=== PATIENT | male | born 1985 | race Caucasian/White ===

== ENCOUNTER 2020-11-16 14:06 | Emergency (ER) | payer SELFPAY ==
[~2020-11-16] VITALS: Ht 177.8 cm; Wt 75.0 kg
[~2020-11-16 14:06] MED LIST: NOCURR
[2020-11-16] MEDS ORDERED: SODIUM CHLORIDE 0.9% 1,000 ML IV ONE (15:15)
[2020-11-16] MEDS ORDERED: PB/HYOSCY/ATR/SCOP/LIDO/MAALOX 55 ML BOTTLE PO ONE (15:15)
[2020-11-16 16:01] LABS: BASOPHILS % (AUTO) 0.9 % (0.0-2.0); HEMATOCRIT 47.1 % (41-53); HEMOGLOBIN 15.4 g/dL (13.5-17.5); LYMPHOCYTES # (AUTO) 1.8 K/uL (1.0-4.8); LYMPHOCYTES % (AUTO) 25.1 % (22.0-44.0); MEAN CORPUSCULAR HEMOGLOBIN 28.6 pg (26.0-34.0); MEAN CORPUSCULAR HGB CONC 32.6 G/dL (31.0-37.0); MEAN CORPUSCULAR VOLUME 88 fL (80-100); MONOCYTES # (AUTO) 0.4 K/uL (0.1-1.0); MONOCYTES % (AUTO) 6.2 % (2.0-9.0); NEUTROPHILS # (AUTO) 4.8 K/uL (1.8-7.7); NEUTROPHILS % (AUTO) 66.8 % (40.0-70.0); PLATELET COUNT (AUTO) 183 K/uL (150-450); RED BLOOD CELL COUNT(AUTO) 5.38 MIL/uL (4.50-5.90); RED CELL DISTRIBUTION WIDTH 12.5 % (11.5-14.5)
[2020-11-16 16:03] LABS: COVID AG,FIA SOURCE NASOPHARYNGEAL
[2020-11-16 16:12] LABS: ANION GAP 6 mmol/L (8-16); CARBON DIOXIDE 28 mmol/L (22-29); CHLORIDE 105 mmol/L (98-107); CREATININE 0.85 mg/dL (0.60-1.30); GLUCOSE,RANDOM 156 mg/dL (70-110); POTASSIUM 3.5 mmol/L (3.5-5.1); SODIUM SERUM 139 mmol/L (136-145); UREA NITROGEN, BLOOD 12 mg/dL (7-18)
[2020-11-16 16:13] LABS: GLOMERULAR FILTR. RATE CALC > 60 mL/min (>60)
[2020-11-16 16:18] LABS: ALANINE AMINOTRANSFERASE 23 U/L (12-78); ALBUMIN 3.8 g/dL (3.4-5.0); ALKALINE PHOSPHATASE 49 U/L (46-116); ASPARTATE AMINOTRANSFERASE 18 U/L (15-37); BILIRUBIN,TOTAL 0.6 mg/dL (0.1-1.0); LIPASE 106 U/L (73-393); TOTAL PROTEIN, SERUM 7.3 g/dL (6.4-8.2)
[2020-11-16 16:53] VITALS: BP 124/75
== END 2020-11-16 17:03 | disposition home or self-care (01) ==
LOC: EMS 14:20
DX: K52.9 Noninfective gastroenteritis and colitis, unspecified (principal); R10.13 Epigastric pain; Z20.822 Contact with and (suspected) exposure to COVID-19
CPT/HCPCS: 36415; 80053; 83690; 85025; 87426; 96360; 99283; J7030

== ENCOUNTER 2021-11-11 13:45 | Emergency (ER) | payer MEDICAID, OTHER ==
[~2021-11-11] VITALS: Ht 180.3 cm; Wt 71.0 kg
[2021-11-11 14:14] VITALS: BP 134/52
[2021-11-11] MEDS ORDERED: DOXY-354 PO (14:23)
[2021-11-11] MEDS ORDERED: TOLN108P2 TP (14:23)
== END 2021-11-11 14:36 | disposition home or self-care (01) ==
LOC: EMS 13:47
DX: S80.862A Insect bite (nonvenomous), left lower leg, initial encounter (principal); L08.9 Local infection of the skin and subcutaneous tissue, unspecified; B35.6 Tinea cruris; R21 Rash and other nonspecific skin eruption; F12.90 Cannabis use, unspecified, uncomplicated; F17.210 Nicotine dependence, cigarettes, uncomplicated; W57.XXXA Bitten or stung by nonvenomous insect and other nonvenomous arthropods, initial encounter; Y93.89 Activity, other specified; Y92.89 Other specified places as the place of occurrence of the external cause; Y99.8 Other external cause status
CPT/HCPCS: 99283

== ENCOUNTER 2022-06-09 10:58 | Emergency (ER) | payer MEDICAID ==
[~2022-06-09] VITALS: Ht 180.3 cm; Wt 81.0 kg
[~2022-06-09 10:58] MED LIST changes: +DOXY-354 PO; +TOLN108P2 TP
[2022-06-09 12:40] VITALS: BP 128/89
[2022-06-09] MEDS ORDERED: BACI28OI29 TP (12:47)
[2022-06-09] MEDS ORDERED: DOXY-354 PO (12:48)
[2022-06-09] MEDS ORDERED: CEPH-558 PO (12:48)
[2022-06-09] MEDS ORDERED: CEPHALEXIN MONOHYDRATE 500 MG CAPSULE PO ONE (13:00)
[2022-06-09] MEDS ORDERED: DOXYCYCLINE HYCLATE 100 MG TABLET PO ONE (13:00)
== END 2022-06-09 13:01 | disposition home or self-care (01) ==
LOC: EMS 10:59
DX: L02.222 Furuncle of back [any part, except buttock and flank] (principal); F17.210 Nicotine dependence, cigarettes, uncomplicated; F12.90 Cannabis use, unspecified, uncomplicated
CPT/HCPCS: 97597; 99283

== ENCOUNTER 2022-10-24 16:08 | Emergency (ER) | payer SELFPAY ==
[~2022-10-24] VITALS: Ht 175.3 cm; Wt 76.8 kg
[~2022-10-24 16:08] MED LIST changes: +BACI28.410 TP; +CEPH-558 PO; -NOCURR; -TOLN108P2 TP
[2022-10-24 16:27] VITALS: BP 124/68; PULSE 78; RESP 16; TEMP 98.4
[2022-10-24] MEDS ORDERED: IBUP-1492 PO (17:12)
== END 2022-10-24 17:22 | disposition home or self-care (01) ==
LOC: EMS 16:09
DX: M77.11 Lateral epicondylitis, right elbow (principal); F12.90 Cannabis use, unspecified, uncomplicated; F17.210 Nicotine dependence, cigarettes, uncomplicated
CPT/HCPCS: 99283

== ENCOUNTER 2023-03-09 12:10 | Emergency (ER) | payer SELFPAY ==
[~2023-03-09] VITALS: Ht 175.3 cm; Wt 77.0 kg
[~2023-03-09 12:10] MED LIST changes: -BACI28.410 TP; -CEPH-558 PO; -DOXY-354 PO; +IBUP-1492 PO
[2023-03-09 12:28] VITALS: BP 152/90; PULSE 90; RESP 20; TEMP 98.1
== END 2023-03-09 13:25 | disposition home or self-care (01) ==
LOC: EMS 13:04
DX: G47.00 Insomnia, unspecified (principal); F12.90 Cannabis use, unspecified, uncomplicated; Z87.891 Personal history of nicotine dependence
CPT/HCPCS: 99281; Z7502

== ENCOUNTER 2024-04-05 20:58 | Emergency (ER) | payer SELFPAY ==
[~2024-04-05] VITALS: Ht 180.3 cm; Wt 81.8 kg
[2024-04-05 21:15] VITALS: BP 133/91; PULSE 72; RESP 18; TEMP 98.2; O2SAT 99
[2024-04-05 22:25] LABS: BASOPHILS % (AUTO) 0.4 % (0.0-2.0); EOSINOPHILS % (AUTO) 1.3 % (1.0-6.0); HEMATOCRIT 48.3 % (41-53); HEMOGLOBIN 15.7 g/dL (13.5-17.5); LYMPHOCYTES % (AUTO) 16.8 % (22.0-44.0); MEAN CORPUSCULAR HEMOGLOBIN 28.9 pg (26.0-34.0); MEAN CORPUSCULAR HGB CONC 32.6 G/dL (31.0-37.0); MEAN CORPUSCULAR VOLUME 89 fL (80-100); MONOCYTES % (AUTO) 7.9 % (2.0-9.0); NEUTROPHILS # (AUTO) 8.9 K/uL (1.8-7.7); NEUTROPHILS % (AUTO) 73.6 % (40.0-70.0); PLATELET COUNT (AUTO) 182 K/uL (150-450); RED BLOOD CELL COUNT(AUTO) 5.44 MIL/uL (4.50-5.90); RED CELL DISTRIBUTION WIDTH 13.2 % (11.5-14.5); WHITE BLOOD COUNT (AUTO) 12.1 K/uL (4.5-11.0)
[2024-04-05 22:34] LABS: ANION GAP 8 mmol/L (8-16); CALCIUM, TOTAL 8.7 mg/dL (8.8-10.5); CARBON DIOXIDE 27 mmol/L (22-29); CHLORIDE 105 mmol/L (98-107); CREATININE 0.92 mg/dL (0.60-1.30); GLOMERULAR FILTR. RATE CALC > 60 mL/min (>60); GLUCOSE,RANDOM 93 mg/dL (70-110); POTASSIUM 4.1 mmol/L (3.5-5.1); SODIUM SERUM 140 mmol/L (136-145); UREA NITROGEN, BLOOD 12 mg/dL (7-18)
[2024-04-05 22:41] LABS: TROPONIN I-HIGH SENSITIVITY 6 ng/L (<76)
[2024-04-05 22:48] LABS: ALANINE AMINOTRANSFERASE 18 U/L (12-78); ALBUMIN 3.5 g/dL (3.4-5.0); ALKALINE PHOSPHATASE 75 U/L (46-116); ASPARTATE AMINOTRANSFERASE 19 U/L (15-37); BILIRUBIN,TOTAL 0.2 mg/dL (0.1-1.0); TOTAL PROTEIN, SERUM 7.2 g/dL (6.4-8.2)
== END 2024-04-05 23:22 | disposition left against medical advice (07) ==
LOC: EMS 20:58
DX: R42 Dizziness and giddiness (principal); Z53.21 Procedure and treatment not carried out due to patient leaving prior to being seen by health care provider
CPT/HCPCS: 80048; 80076; 84484; 85025; 93005